=== PATIENT | male | born 1970 | race African-American/Black ===

== ENCOUNTER 2024-02-26 16:16 | Emergency (ER) | payer OTHER, SELFPAY ==
[2024-02-26 16:29] VITALS: BP 149/89; PULSE 58; RESP 18; TEMP 36.6; O2SAT 100
--- NOTE | 2024-02-26 16:30 | ED.ABDPAIN ---
HPI - Abdominal Pain General Chief Complaint: Abdominal Pain Stated Complaint: pain below rib cage Time Seen by Provider: 02/26/24 16:30 Source: patient, RN notes reviewed and old records reviewed Mode of arrival: ambulatory Limitations: no limitations History of Present Illness HPI narrative: patient presents with complaints left-sided rib pain that has been present for about 1 week. He reports that pain typically begins sometime between 11:00 a.m. and 3:00 p.m. while at work. He reports that pain is not present when he is not at work. 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 He took some Tylenol for his symptoms today with moderate relief. He denies any injury or trauma. He denies any fever, chills, sweats. He denies any nausea or vomiting. He denies any change in bowel or bladder pattern. Related Data Home Medications Medication Instructions Recorded Confirmed amlodipine 10 mg tablet mg 02/26/24 Allergies Allergy/AdvReac Type Severity Reaction Status Date / Time No Known Allergies Allergy Verified 02/26/24 16:30 Review of Systems Review of Systems: All systems reviewed & are unremarkable except as noted in HPI and below Constitutional: Constitutional: Reports no additional constitutional complaints ENT: Reports system reviewed and no additional complaints, except as documented Cardiovascular: Cardiovascular: Reports no additional cardiovascular complaints Respiratory: Respiratory: Reports no additional respiratory complaints Gastrointestinal: Gastrointestinal: Reports as per HPI and Reports no additional gastrointestinal complaints Musculoskeletal: Musculoskeletal: Reports no additional musculoskeletal complaints and Reports as per HPI Exam Const: General: cooperative, no acute distress, alert and awake Orientation/consciousness: oriented to person, oriented to place and oriented to time HENMT: Head: normal to inspection Chest: Chest palpation & inspection: localized rib tenderness with anteroposterior compression left anterior-axillary line involving the 10th rib Resp: Effort & Inspection: normal respiratory effort and able to speak in complete sentences Auscultation: clear to auscultation bilaterally, no crackles, no rales, no rhonchi and no wheezes Cardio: Palpation: normal PMI Rate: regular rate Rhythm: regular rhythm Heart sounds: S1 normal heart sound present and S2 normal heart sound present Back/Spine/Pelvis: Thoracic/Lumbar Spine: thoraco-lumbar ROM normal, No thoracic spinal tenderness and No lumbar spinal tenderness Neuro: General: oriented to person, oriented to place and oriented to time Cranial nerves: Yes CN's II-XII intact bilaterally Psych: Appearance: grossly normal Thought process: Normal thought process present Insight: Good insight present (Psych) Judgement: Good judgement present (Psych) Course Course Level of Care: Express Care Visit MDM - Abdominal Pain MDM Narrative Medical decision making narrative: patient doing much more physical activity than he normally does, pain develops only while he is at work, typically between the hours of 11:00 a.m. and 3:00 p.m.. Likely overuse injury. Try prednisone burst, follow-up with primary care provider. Emergency department for new or worse symptoms. Discharge instructions reviewed with patient, as well as provided in writing per nursing staff. The instructions also include specific and strict return/GO TO THE ER as well as f/u information. All questions have been answered, and the patient deny any further questions with discharge and discharge plan Some parts of this dictation were generated by voice recognition software and may contain typographical and/or grammatical inaccuracies. Differential Diagnosis Differential diagnosis: Likely constipation and other ( Musculoskeletal pain, contusion) Discharge Plan Discharge Clinical Impression: Acute costochondritis Pa
[2024-02-26 16:31] VITALS: BP 149/89; PULSE 58; RESP 18; TEMP 36.6; O2SAT 100
== END 2024-02-26 16:47 | disposition home or self-care (01) ==
PROVIDERS: Emergency Provider Nurse Practitioner Family
DX: M94.0 Chondrocostal junction syndrome [Tietze] (principal)
CPT/HCPCS: 99203; G0463

== ENCOUNTER 2025-04-29 01:37 | Day surgery (SDC) | payer OTHER, SELFPAY ==
[2025-04-19 12:14] VITALS: BMI 34.4
--- OUTSIDE RECORDS SUMMARY | 2025-04-29 01:40 | XMS_ITS | Clinical Summary ---
Author Organization [address] Address [address] [facility] [address] [place] [address] Care Team Providers Care [employer] Name Role Phone Cliff Pereira MD Primary Care Provider Allergies No known active allergies Medications amLODIPine (NORVASC) 10 mg tabletIndicatio ns:Hypertension , essential Take 1 tablet (10 mg total) by mouth daily 90 tablet 3 5 Active meloxicam (MOBIC) 15 mg tablet Take 1 tablet (15 mg total) by mouth daily 30 tablet 5 Active Additional Information Patient not taking.Reported on 02/10/2025 cyclobenzaprine (FLEXERIL) 5 mg tabletIndicatio ns:Back stiffness Take 1-2 tablets (5-10 mg total) by mouth 2 (two) times a day as needed for muscle spasms (back stiffness) 30 tablet 5 Active Active Problems Problem Noted Date Diagnosed Date Hypertension, essential 10/27/2024 Assessment & Plan (10/27/2024 12:52 PM CDT): Chronic condition Hypertension diagnosed in September 2023, currently managed with amlodipine 10 mg daily. Blood pressure today is 146/85, slightly above target. Typically runs between 138/80-85. No side effects from medication. Reports home BP measurements are typically below 140/80. Discussed importance of maintaining blood pressure below 140/90, especially given age. He is attempting weight loss and dietary modifications to aid in blood pressure control. - Refill amlodipine 10 mg prescription - Encourage regular blood pressure monitoring - Encourage weight loss and dietary modifications - To notify me if blood pressure remains above 140/90 consistently, in office measurement was not in line but this is my 1st time seeing patient reports home blood pressure measurements are better controlled typically Obesity, Class II, BMI 35-39.9 10/27/2024 Assessment & Plan (10/27/2024 12:51 PM CDT): Wt Readings from Last 3 Encounters: 10/27/24 113.4 kg (249 lb 14.4 oz) Body mass index is 35.86 kg/m . - chronic condition, not at goal - goal BMI <30 - BMI Follow-up includes: nutrition counseling, exercise counseling and education provided - Recommend to exercise at least 30 minutes moderate to vigorous exercise most days of the week. (minimum 150 minutes weekly) - Comorbidities: Hypertension Left wrist pain 10/27/2024 Assessment & Plan (12/03/2024 3:26 PM CDT): Orders: XR Wrist Left 3 or More Views; Future Assessment & Plan (10/27/2024 12:56 PM CDT): Left wrist pain, likely tendonitis, exacerbated by golfing. Pain localized to a specific area, worsens with certain movements. Symptoms began in July/August, prior to increased golfing activity. Differential includes tendon strain or overuse injury. Patient requesting steroid injection, but advised evaluation by environmental remediation specialist first. He prefers to avoid x-ray unless recommended by specialist. - Recommended XR of wrist to evaluate for structural issues but would like to hold doff on Xray imaging at this time. - Refer to environmental remediation specialist for evaluation Plantar fasciitis of left foot 10/27/2024 Assessment & Plan (10/27/2024 12:50 PM CDT): Chronic condition, reports improved with use of supportive shoes Preventative health care 10/27/2024 Assessment & Plan (10/27/2024 12:53 PM CDT): - New or chronic worsening conditions: Left wrist pain - Mental health: no significant psychiatric/mental health conditions affecting her day to day functioning - Dental health: Recommend regular dental care and cleaning. Discussed importance of regular tooth brushing, flossing, and dental visits. - Nutrition: Recommend moderation in sodium/caffeine intake, saturated fat and cholesterol, caloric balance, sufficient intake of fresh fruits, vegetables - Exercise: Recommend to exercise at least 30 minutes moderate to vigorous exercise most days of the week. (minimum 150 minutes weekly) - Immunizations: Age and sex appropriate immunizations reviewed and offered - Prostate cancer screening: Recommended, order placed for screening PSA - Colon cancer screening: Recommended, referral placed to GI for screening colonoscopy - Lung cancer screening: not indicated No results found for: PSA Encounters Date Type Department Care Team Description 02/10/2025 2:00 PM CDT Office Visit [facility] Primary Care at [address] [id number] Cliff Pereira MD Back stiffness (Primary Dx) from Last 3 Months Immunizations Immunization Administration Dates Next Due Influenza, Unspecified 10/27/2024(Deferr ed: Patient Refused),07/07/2023(Deferred: Patient Refused) Surgical History Surgery Date Site/Laterality Comments INGUINAL HERNIA REPAIR Left TONSILLECTOMY Bilateral Medical History Medical History Date Comments Hypertension Family History Medical History Relation Name Comments Dementia Mother Relation Name Status Comments Father Mother Social History Tobacco Use Types Packs/Day Years Used Date Smoking Tobacco: Never Smokeless Tobacco: Never Tobacco Cessation:Counseling Given: Not Answered PHQ-2 Answer Date Recorded PHQ-2 Total Score (If total score is 3 or more points, staff should administer the PHQ-9) 0 02/10/2025 Sex and Gender Information Value Date Recorded Sex Assigned at Not on file Legal Sex Male 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 Gender Identity Not on file Sexual Orientation Not on file Obstetrics History Last Filed Vital Signs Vital Sign Reading Time Taken Comments Blood Pressure 132/76 02/10/2025 2:02 PM CDT Pulse 76 02/10/2025 2:02 PM CDT Temperature 36.7 C (98.1 F) 02/10/2025 2:02 PM CDT Respiratory Rate - - Oxygen Saturation 98% 02/10/2025 2:02 PM CDT Inhaled Oxygen Concentration - - Weight 113.5 kg (250 lb 3.2 oz) 02/10/2025 2:02 PM CDT Height 177.8 cm (5' 10) 02/10/2025 2:02 PM CDT Body Mass Index 35.9 02/10/2025 2:02 PM CDT Plan of Treatment Health Maintenance Due Date Last Done Comments Colon Cancer Screening-Colonoscopy 1970 DTaP/Tdap/Td Vaccine (1 - Tdap) 1981 Zoster Vaccine (1 of 2) 2020 Influenza Vaccine (#1) 2025 Regular Well Visit/Exam 18-64 10/27/2025 10/27/2024 Depression Screening 02/10/2026 02/10/2025, 10/27/2024 Prostate Cancer Screening-PSA 10/27/2026 10/27/2024 Hepatitis B Screening Completed 10/27/2024 Hepatitis C Screening Completed 10/27/2024 Pneumococcal vaccine <65 Aged Out No longer eligible based on patient's age to complete this topic Procedures Procedure Name Priority Date/Time Associated Diagnosis Comments HEPATITIS C ANTIBODY Routine 10/27/2024 12:25 PM CDT Encounter for hepatitis C screening test for low risk patient PSA SCREEN Routine 10/27/2024 12:25 PM CDT Preventative health care from Last 3 Months or Most Recently Relevant to Health Maintenance Results * PSA screen (10/27/2024 12:25 PM CDT) PSA-Total 0.78 <=3.90 ng/mL Comment: Interpretive Data AGE SEX REFERENCE INTERVAL 0 minutes-150 years Female None 0 minutes-49 years Male None 50-59 years Male 0-3.90 60-69 years Male 0-5.40 70-79 years Male 0-6.20 80-150 years Male 0-6.20 The Jerman PSA Total assay procedure was used. Results from different manufacturers or methods may not be comparable. Serial testing should be performed using the same method. Current interpretive data last revised 21. Blood 10/27/2024 12:2 5 PM CDT 10/27/2024 8:50 PM CDT us Cliff Pereira MD LAB BLOOD ORDERABLES Fi nal Result [place] [address] [address] Department [employer] [place] [address] * Hepatitis C antibody Blood (10/27/2024 12:25 PM CDT) Hep C Ab Nonreactive Nonreactive Comment: Interpretive Data Nonreactive: Antibodies to HCV not detected. Does NOT exclude the possibility of recent exposure to HCV. Equivocal: Equivocal for HCV antibodies. Supplemental molecular testing will be automatically performed to determine infection status in accordance with current CDC screening recommendations. Reactive: Positive for HCV antibodies. This may represent current or past HCV infection. Supplemental molecular testing will be automatically performed to determine current infection status in accordance with current CDC screening recommendations. Interpretive data was last revised on 2019. Blood 10/27/2024 12:2 5 PM CDT 10/27/2024 8:50 PM CDT Cliff Pereira MD LAB MICROBIOLOGY - GENE RAL ORDERABLES Final Result Performing Organization Address City/State/[facility] [place] [address] [address] [place] [address] from Last 3 Months or Most Recently Relevant to Health Maintenance Insurance [facility] PPO Care Teams Member Of [employer] Legislative [employer] Relationship Specialty Start Date End Date Cliff Pereira MD [address] [facility] [address] [place] [address] PCP - General Family Medicine 12/15/24
[2025-04-29 06:29] VITALS: BP 152/87; PULSE 58; RESP 16; TEMP 36.5; O2SAT 95
[2025-04-29] MEDS: LACTATED RINGERS 1,000 ML 150 ML IV CONT (06:43)
--- NOTE | 2025-04-29 07:06 | P.PNAN_ITS ---
Anes - Initial Pre Proc Eval Procedure: Operation Date: 04/29/25 07:30 Proposed Procedures p Screening Colonoscopy - Leonard May MD Date/Time: 04/29/25 07:06 Surgeon: Leonard May MD Pre Op Diagnosis: Screening Patient Data Age: 54 Gender: M Height: 1.78 m Weight: 112.2 kg Last Vital Signs Temp 97.7 F 04/29/25 06:29 Pulse 58 L 04/29/25 06:29 Resp 16 04/29/25 06:29 BP 152/87 H 04/29/25 06:29 Pulse Ox 95 04/29/25 06:29 O2 Del Method Room Air 04/29/25 06:29 Allergies Allergy/AdvReac Type Severity Reaction Status Date / Time No Known Allergies Allergy Verified 04/29/25 06:27 Home Medications ?Medication ?Instructions ?Recorded ?Confirmed ?Type amlodipine 10 mg tablet 10 mg PO DAILY 02/26/2404/07 History sodium,potassium,mag sulfates 17.5 See Rx Instructions PO .COMPLEX 04/28/25 Rx gram-3.13 gram-1.6 gram oral soln #354 mL (Suprep Bowel Prep Kit) Patient hx anesthesia problems: none Family hx anesthesia problems: none Results Review: All pre-operative results and documents have been reviewed as part of the pre- operative evaluation. [facility] Social History Social History Smoking status: Never smoker Alcohol intake: current Drinks per week: 10 Substance use type: does not use Living arrangements: alone Spiritual care concerns: No Anes - Eval Final PreProcedure Day of Procedure 04/29/25 07:06 Patient weight: normal Lungs: normal air movement Airway: Mallampati scale class II Neurological: alert and oriented Last oral intake: >/= 8 hours ASA classification: II Emergent: no Anesthetic plan: proceed Anesthesia type and monitoring: general GIVS and standard monitoring Results Review: All pre-operative results and documents have been reviewed as part of the pre- operative evaluation. HTN, BMI 35, active w golf, no cp or sob. Informed Consent: The patient's anesthetic plan and its attendant risks and benefits were discussed with the patient/family/POA. Questions were solicited and answers provided to the satisfaction of the patient/family/POA.
--- NOTE | 2025-04-29 07:28 | P.HP_ITS ---
H&P: HPI History of Present Illness Date/Time: 04/29/25 07:28 Chief Complaint: Screening colonoscopy Narrative: This is the patient's first colonoscopy. There are no GI symptoms and there is no family history of colorectal cancer. Review of Systems Review of Systems: All systems reviewed & are unremarkable except as noted in HPI and below [facility] Social History Social History Smoking status: Never smoker Alcohol intake: current Drinks per week: 10 Substance use type: does not use Living arrangements: alone Spiritual care concerns: No Meds Home Medications and Allergies Home Medications ?Medication ?Instructions ?Recorded ?Confirmed ?Type amlodipine 10 mg tablet 10 mg PO DAILY 02/26/2404/07 History sodium,potassium,mag sulfates 17.5 See Rx Instructions PO .COMPLEX 04/28/25 Rx gram-3.13 gram-1.6 gram oral soln #354 mL (Suprep Bowel Prep Kit) Allergies Allergy/AdvReac Type Severity Reaction Status Date / Time No Known Allergies Allergy Verified 04/29/25 06:27 Vital Signs Vital Signs - 24 hr 04/29/25 06:29 Temperature 97.7 F Pulse Rate 58 L Respiratory Rate 16 Blood Pressure 152/87 H Pulse Oximetry 95 Oxygen Delivery Room Air Exam Const: General: cooperative and healthy appearing Resp: Effort & Inspection: normal respiratory effort and able to speak in complete sentences Auscultation: clear to auscultation bilaterally Cardio: Rate: regular rate Rhythm: regular rhythm GI: Inspection: normal to inspection GI Palp: No No hepatosplenomegaly present Auscultation: normal bowel sounds Rectal Exam: deferred Skin: General skin exam: normal color Psych: Appearance: grossly normal Mental Status: mental status grossly normal Assessment and Plan Assessment and plan (1) Encounter for screening colonoscopy: Code(s): Z12.11 - Encounter for screening for malignant neoplasm of colon Status: Acute Assessment and Plan: The patient is deemed a good candidate for the procedure. Consent signed. Will proceed.
--- NOTE | 2025-04-29 07:44 | S_PTH ---
PATIENT: Kevin Bryant LOC: [facility] #:[id number] AGE/SX: 54/M ROOM: RE04/29/[address]: Leonard May MD : 1970 BED: DIS: 04/29/2025 SPEC #: [id number] RECD: 04/29/25 10:20 STATUS: DAVID REAnthony #: [id number] TONA: 04/29/25 07:[address]: Leonard May DEPT: [facility] Surgical RECD BY: Katrin Dunbar ENTERED: 04/29/25 10:21 SP TYPE: Surgical OTHR DR: Cliff PereiraMD Tissues: A - Colon Polypectomy B - Colon Polypectomy Procedures: Hematoxylin and Eosin Stain Gross and Microscopic Level 4
[2025-04-29 07:48] VITALS: BP 128/72; PULSE 65; RESP 16; O2SAT 94
[2025-04-29 07:58] VITALS: BP 124/75; PULSE 60; RESP 18; O2SAT 98
[2025-04-29 08:08] VITALS: BP 116/75; PULSE 60; RESP 16; O2SAT 99
== END 2025-04-29 08:20 | disposition home or self-care (01) ==
PROVIDERS: PCP Family Medicine; Referring Provider Family Medicine; Visit Provider Internal Medicine Gastroenterology
PROC: 0DJD8ZZ Inspection of Lower Intestinal Tract, Via Natural or Artificial Opening Endoscopic (ICD-10-PCS; CPT 45378; principal; 2025-04-29 07:30)
DX: Z12.11 Encounter for screening for malignant neoplasm of colon (principal); D12.3 Benign neoplasm of transverse colon; K63.5 Polyp of colon; K64.8 Other hemorrhoids
CPT/HCPCS: 45385; 88305; J2003; J2704; J7120